=== PATIENT | male | born 1945 | race Hispanic/Latino ===

== ENCOUNTER → 2017-09-04 | Outpatient (CLI) | payer MEDICARE ==
[~2017-09-04] MED LIST: IOPAMIDOL 370 MG/ML 200 ML INFUS..BTL INJ ONE; SODIUM CHLORIDE 0.9% 50ML 50 ML ONE
[2017-09-04 15:40] LABS: BLOOD UREA NITROGEN 17 mg/dL (7-26); BUN/CREATININE RATIO 20 (6-25); CREATININE, SERUM 0.84 mg/dL (0.72-1.25); EST GLOMERULAR FILTRATION RATE > 60 ML/MIN (60-)
--- NOTE | 2017-09-05 07:49 | Diagnostic Imaging Report ---
CT scan chest. September 04, 2021 Clinical history: Laryngeal cancer. Technique: Routine volumetric CT chest performed after 100 mL Isovue-370 intravenous contrast. No enteric contrast. Coronal, sagittal and axial images generated from source data. Dose: 359.26 mGy-cm Comparison: None Findings: Lungs: Paraseptal and centrilobular upper lung zone predominant emphysema. Mild left lower lobe subsegmental atelectasis. Pulmonary nodules: 0.4 cm subpleural right upper lobe (image 42, series 801) 0.3 cm right upper lobe (image 42, series 801) 0.8 cm right lower lobe noncalcified (image 57) 0.6 cm right lower lobe noncalcified (image 95) 0.6 cm left lower lobe calcified (image 73) granuloma 0.7 cm left lower lobe noncalcified (image 80) Airways: Circumferential bronchial wall thickening in the upper and lower lung zones bilaterally. No bronchiectasis. Pleura: Normal Lymph nodes: Normal Pulmonary arteries: Normal caliber Thoracic aorta and great vessels: Normal caliber Heart and pericardium: Normal size. No pericardial effusion. Mild left anterior descending coronary artery calcification. Imaged segments of the subdiaphragmatic organs are unremarkable. Skeleton: Intact. No lytic or blastic lesions. Soft tissues: Normal Impression: 1. Multiple pulmonary nodules as described. The largest is on the right and measures 0.8 cm. There is evidence of remote granulomatous disease, as indicated by calcified granuloma in the left lower lobe. Differential diagnosis includes metastasis and noncalcified granulomas. Follow-up will be needed to determine clinical consequence of these nodules. 2. Paraseptal and centrilobular emphysema. 3. Circumference of bronchial wall thickening throughout the lungs, likely related to COPD. This report was generated with voice-recognition technology. Errors in direct support professional can occur. Please interpret accordingly and contact a radiologist if there are any questions regarding the report. Signed by: Dr. Sidney Smith M.D. on 09/05/2017 7:46 AM
--- NOTE | 2017-09-05 11:50 | Diagnostic Imaging Report ---
Exam: Lumbar spine MRI without IV contrast History: Lower back pain Comparison studies: None. Technique: Sagittal and axial T2 , sagittal T1 and IR, axial spin density oblique. Coronal T2. Coronal T2. Intravenous contrast: None Findings: Number of lumbar vertebral bodies: 5. Alignment: Normal lumbar lordosis. Mild thoracolumbar curvature convex to the left with compensatory lower lumbar curvature convex to the right. Soft tissues: No T2 hyperintense inflammatory changes. A benign appearing 0.3 cm T2 hyperintense cyst posterior to the L2 transverse may represent probably a degenerative cyst. Incidental 1.4 cm left renal cyst. Paraspinal muscles: Mild symmetric atrophy. Lower thoracic cord: Normal in signal and morphology. The tip of the conus is at L2-L3. Cauda equina: No masses. No arachnoiditis. Vertebrae: No compression fractures, infection or neoplasm. Degenerative changes: L1-L2: Mildly degenerated disc with mild symmetric bulging disc without significant canal or foraminal stenosis. L2-L3: Mildly degenerated disc with mild symmetric bulging disc without significant canal or foraminal stenosis.. L3-L4: Mildly degenerated disc. Disc bulge with small shallow right central disc protrusion and mild facet arthrosis result in mild canal and bilateral foraminal stenosis. L4-L5: Mildly degenerated disc. Disc bulge, ligamentum flavum, mild facet arthrosis and left foraminal disc osteophyte complex with moderate canal stenosis and moderate left and mild right foraminal stenosis. L5-S1: Moderately degenerated disks with loss of disc height and T2 disc signal. Disc bulge with small focal calcified left subarticular disc protrusion, facet arthrosis and left foraminal disc osteophyte complex with mild right and moderate left foraminal stenosis. No significant canal stenosis. Focal calcified disc protrusion abuts but does not compress the left S1 nerve root. Incidental findings: Infrarenal abdominal aortic aneurysm measures up to 3.5 cm in greatest AP transverse diameter. IMPRESSION: 1. Multilevel disc degeneration, worse/moderate at L5-S1. 2. Degenerative canal stenosis, moderate at L4-L5 and mild at L3-L4. 3. Moderate degenerative foraminal stenosis on the left at L4-L5 and at L5-S1. 4. Incidental infrarenal abdominal aortic aneurysm. Signed by: Dr. Ren Madison M.D. on 09/05/2017 11:46 AM
--- NOTE | 2017-09-05 12:19 | Diagnostic Imaging Report ---
Exam: Soft tissue neck CT with IV contrast History: Laryngeal cancer diagnosed in 2003 Comparison studies: None Technique: Axial, coronal and sagittal images from the skull base to the thoracic inlet. Coronal and sagittal images reconstructed from the axial data. Intravenous contrast: 100 cc of Omnipaque 300. Findings: Soft tissues: No mass identified. Evaluation of the oral cavity is limited by artifact related to dental amalgam. No gross mass in the oral cavity. Focal cords are adducted the time of exam which somewhat limits evaluation; no gross mass. Incidental oropharyngeal tonsilloliths as sequela previous infection/inflammation. Lymph nodes: No radiographically significant adenopathy. Vessels: Patent carotid and vertebral arteries. Mild atherosclerosis in the right common carotid artery and carotid bulb which do not result in hemodynamically significant stenosis. Patent endovascular stent within the distal left common carotid artery extends into the left carotid bulb (cannot further evaluate for in-stent stenosis on this exam tailored to evaluate the neck soft tissues). Glands (thyroid, parotid and submandibular): Normal in size and symmetric. No masses. Paranasal sinuses: Surgical changes of previous endoscopic sinus surgery with bilateral medial antrostomies, uncinectomies, left middle turbinate and likely right middle turbinate reduction. The left frontal sinus is nearly completely opacified and the left frontal ethmoidal recesses obstructed. There is scattered mucosal thickening within the bilateral maxillary sinuses and left sphenoid sinuses which also contains small fluid levels which could be correlated for acute sinusitis. Residual right ethmoids an ethmoidectomy beds are partially opacified. There is mild mucosal thickening along the left ethmoidectomy bed. Orbits: No abnormalities. Paranasal sinuses: Clear. Temporal bones: No gross abnormalities. Skull base and facial bones: Intact. Cervical spine: Cervical disc degeneration from C2 to C7 greatest at C5-C6 and at C6-C7. Disc osteophyte complexes at C2-C3, C3-C4, C5-C6 and C6-C7 result in mild canal stenosis. Moderate foraminal stenosis bilaterally at C3-C4, C5-C6 and at C6-C7 due to uncovertebral facet arthrosis. Included lung apices: Centrilobular and paraseptal emphysema. Please refer to report from dedicated chest CT performed on the same date. IMPRESSION: 1. No mass or cervical lymphadenopathy. 2. Patent left cervical carotid stent. 3. Degenerative changes in the cervical spine as described. 4. Changes of previous endoscopic sinus surgery. Inflammatory changes with fluid levels in the paranasal sinuses could be correlated for acute sinusitis. Signed by: Dr. Ren Madison M.D. on 09/05/2017 12:16 PM
== END | disposition home or self-care (01) ==
LOC: MRI 13:44
PROVIDERS: ATTEND Specialist
DX: Z85.21 Personal history of malignant neoplasm of larynx (principal); J44.9 Chronic obstructive pulmonary disease, unspecified; R03.1 Nonspecific low blood-pressure reading; R91.8 Other nonspecific abnormal finding of lung field; J43.9 Emphysema, unspecified; M48.07 Spinal stenosis, lumbosacral region; I71.4 Abdominal aortic aneurysm, without rupture
CPT/HCPCS: 36415; 70491; 71260; 72148; 82565; 84520; Q9967

== ENCOUNTER → 2020-08-24 | Outpatient (CLI) | payer MEDICARE, OTHER | LOC: MRI 09:06 | PROVIDERS: ATTEND Specialist | DX: M25.521 Pain in right elbow (principal); M25.511 Pain in right shoulder ==

== ENCOUNTER → 2020-10-07 | Day surgery (SDC) | payer MEDICARE, OTHER ==
[2020-10-05 08:56] LABS: BASOPHILS % 0.7 % (0.0-1.0); EOSINOPHILS # (AUTO) 0.1 (0.0-0.4); EOSINOPHILS % 2.1 % (0.0-6.0); HEMATOCRIT 46.6 % (38.2-49.6); HEMOGLOBIN 15.7 g/dL (14.0-18.0); LYMPHOCYTES # (AUTO) 0.9 (1.0-3.2); LYMPHOCYTES % 15.9 % (18.0-39.1); MEAN CORPUSCULAR HEMOGLOBIN 32.6 pg (28-32); MEAN CORPUSCULAR HGB CONC 33.7 g/dL (31-35); MEAN CORPUSCULAR VOLUME 96.7 fL (81-99); MONOCYTES # (AUTO) 0.5 (0.2-0.8); MONOCYTES % 9.6 % (4.4-11.3); NEUTROPHILS % 71.3 % (38.7-80.0); PLATELET COUNT 105 x10e3/uL (140-360); RED BLOOD COUNT 4.82 x10e6/uL (4.3-5.7); RED CELL DISTRIBUTION WIDTH 14.6 % (11.7-14.4)
[2020-10-05 09:12] LABS: INR 1.14; PARTIAL THROMBOPLASTIN TIME 32.8 seconds (23.8-35.5); PROTHROMBIN TIME 15.3 seconds (11.9-14.5)
[2020-10-05 09:17] LABS: ANION GAP 13.8 mmol/L (8-16); BLOOD UREA NITROGEN 23 mg/dL (7-26); BUN/CREATININE RATIO 22 (6-25); CALCIUM 9.2 mg/dL (8.4-10.2); CARBON DIOXIDE 27 mmol/L (22-29); CHLORIDE 103 mmol/L (98-107); CREATININE, SERUM 1.06 mg/dL (0.72-1.25); EST GLOMERULAR FILTRATION RATE > 60 ML/MIN (60-); GLUCOSE 105 mg/dL (74-118); POTASSIUM 3.8 mmol/L (3.5-5.1); SODIUM 140 mmol/L (136-145)
[~2020-10-07] MED LIST changes: +ACETAMINOPHEN 1000 MG/100 ML 100 ML IV ONE; +ASPIRIN81 MG PO; +CEFAZOLIN SOD 1 GM/NS 50ML 100 ML IV ONE; +CETIRIZINE HCL10 MG PO; +DEXAMETHASONE SOD PHOS 10 MG/1 ML VIAL ONE; +DEXAMETHASONE SOD PHOS INJ 4 MG/ML VIAL ONE; +EPHEDRINE SULFATE INJ 50 MG/ML VIAL ONE; +FENTANYL CITRATE/PF 100MCG/2 ML INJ ONE; +GLYCOPYRROLATE INJ 0.2 MG/ML VIAL ONE; -IOPAMIDOL 370 MG/ML 200 ML INFUS..BTL INJ ONE; +LEVOTHYROXINE50 MC1 PO; +LIDOCAINE HCL 2% LOCAL INJ 5 ML SDV VIAL INJ ONE; +MIDAZOLAM HCL 2 MG/2 ML VIAL ONE; +MONTELUKAST SOD10 MG PO; +NEOSTIGMINE 1 MG/ML 10ML VIAL ONE; +ONDANSETRON HCL INJ 2MG/ML 2ML 2 MG/ML VIAL ONE; +PROPOFOL IV EMULSION 10 MG/ML 20 ML VIAL ONE; +ROCURONIUM BROMIDE 10 MG/ML 5ML VIAL IV ONE; +ROPIVACAINE 0.5% 5 MG/ML 30 ML SDV ONE; +SEVOFLURANE INHAL SOLN 250 ML PEN BTL ONE; -SODIUM CHLORIDE 0.9% 50ML 50 ML ONE; +SOTALOL80 MG PO; +TRIAMTERENE-HCTZ1 EA PO; +WARFARIN SODIU2.5 MG PO
[2020-10-07 14:43] VITALS: BP 138/95
== END | disposition home or self-care (01) ==
LOC: OR 06:32
PROVIDERS: ATTEND Specialist
DX: M75.101 Unspecified rotator cuff tear or rupture of right shoulder, not specified as traumatic (principal); M19.011 Primary osteoarthritis, right shoulder; S46.111A Strain of muscle, fascia and tendon of long head of biceps, right arm, initial encounter; M24.611 Ankylosis, right shoulder; M65.811 Other synovitis and tenosynovitis, right shoulder; I25.10 Atherosclerotic heart disease of native coronary artery without angina pectoris; I48.91 Unspecified atrial fibrillation; J44.9 Chronic obstructive pulmonary disease, unspecified; I10 Essential (primary) hypertension; E03.9 Hypothyroidism, unspecified; W00.0XXA Fall on same level due to ice and snow, initial encounter; Z88.8 Allergy status to other drugs, medicaments and biological substances; Z01.812 Encounter for preprocedural laboratory examination; Z20.822 Contact with and (suspected) exposure to COVID-19; Z79.01 Long term (current) use of anticoagulants; Z79.82 Long term (current) use of aspirin; Z85.21 Personal history of malignant neoplasm of larynx
CPT/HCPCS: 29824; 29826; 29827; 36415; 71046; 80048; 85025; 85610; 85730; C1713; J0131; J0690; J1100 ×2; J2001; J2250; J2405; J2704; J2710; J2795; J3010; U0002